=== PATIENT | female | born 1970 | race Caucasian/White ===

== ENCOUNTER 2018-03-25 02:24 | Emergency (ER) | payer OTHER, SELFPAY ==
[2018-03-25] MEDS ORDERED: traMADol 50 MG Tab PO ONE (03:13)
--- NOTE | 2018-03-25 03:15 | EDM.PDOC ---
ED HPI GENERAL MEDICAL PROBLEM - General Chief Complaint: ENT Problem Stated Complaint: TOOTH PAIN Time Seen by Provider: 03/25/18 03:09 Source of Information: Reports: Patient History Limitations: Reports: No Limitations - History of Present Illness INITIAL COMMENTS - FREE TEXT/NARRATIVE: Patient presents with dental pain started yesterday and worse tonight. She's been trying tramadol and Aleve without relief. She has allergic reaction to acetaminophen. He has had recent dental work including root canal and crowns placed. She has an appointment to see the dentist on Monday but her pain is so severe that she needs to be evaluated tonight. No fevers chills or sweats no swallowing difficulty no shortness of breath or breathing problems no facial cellulitis. Patient has a history of diabetes and her blood sugars have been running a little bit higher than usual. Nothing otherwise makes the pain better or worse is no skin infection noted. Left Tooth/Teeth Pain Score (Numeric/FACES): 10 - Related Data Allergies Allergy/AdvReac Type Severity Reaction Status Date / Time acetaminophen Allergy Swelling Verified 03/25/18 02:33 MDT azithromycin Allergy Swelling Verified 03/25/18 02:33 MDT Sulfa (Sulfonamide Allergy Itching Verified 03/25/18 02:33 MDT Antibiotics) Home Meds: Home Meds Levothyroxine 25 mg PO DAILY 03/25/18 [History] Losartan [Cozaar] 100 mg PO DAILY 03/25/18 [History] Penicillin V Potassium [Veetids] 500 mg PO Q8H #30 tab 03/25/18 [Rx] hydroCHLOROthiazide [Hydrochlorothiazide] 25 mg PO DAILY 03/25/18 [History] traMADol [Ultram] 100 mg PO Q6H PRN #12 tab 03/25/18 [Rx] Past Medical History Cardiovascular History: Reports: Hypertension Endocrine/Metabolic History: Reports: Hypothyroidism - Past Surgical History HEENT Surgical History: Reports: Tonsillectomy GI Surgical History: Reports: Cholecystectomy Female Surgical History: Reports: Tubal Ligation Social & Family History - Family History Family Medical History: Noncontributory - Tobacco Use Smoking Status *Q: Never Smoker - Recreational Drug Use Recreational Drug Use: No ED ROS ENT - Review of Systems Review Of Systems: See Below Constitutional: Denies: Fever, Chills, Weakness HEENT: Reports: Dental Pain. Denies: Rhinitis, Sinus Problem Respiratory: Denies: Shortness of Breath, Cough Cardiovascular: Denies: Chest Pain GI/Abdominal: Denies: Abdominal Pain Neurological: Denies: Headache ED EXAM, ENT - Physical Exam Exam: See Below Ears: Normal Canal, Normal TMs Nose: Normal Inspection Mouth/Throat: Normal Inspection, Normal Gums, Dental Tenderness, Other (Dental pain noted to where she had crowns at #5 tooth 14 as well as #18. There is no signs of any obvious abscess cellulitis sublingual swelling or trismus). No: Dental Abcess, Dental Trauma, Drooling, Dry Mucous Membrane, Throat Pain, Throat Swelling, Tonsillar Erythema, Trismus Respiratory/Chest: No Respiratory Distress, Lungs Clear, Normal Breath Sounds Cardiovascular: Normal Peripheral Pulses, Regular Rate, Rhythm Neurological: Alert, Oriented Psychiatric: Normal Affect, Normal Mood Course - Vital Signs Text/Narrative:: Dental pain, dental block applied with Percent Marcaine to both upper and lower tooth areas. Patient tolerated well. Given tramadol for pain 100 mg, as well as penicillin. Patient will follow up with her dentist on Monday, return cautious given Last Recorded V/S: Last Vital Signs Temp 97.5 F 03/25/18 02:30 MDT Pulse 102 H 03/25/18 02:30 MDT Resp 16 03/25/18 02:30 MDT BP 170/92 H 03/25/18 02:30 MDT Pulse Ox 96 03/25/18 02:30 MDT - Orders/Labs/Meds Meds: Medications Discontinued Medications Generic Name Dose Route Start Last Admin Trade Name Freq PRN Reason Stop Dose Admin Tramadol HCl 100 mg 03/25/18 03:13 MDT 03/25/18 03:31 MDT Ultram PO 03/25/18 03:14 MDT 100 mg ONETIME ONE Administration Departure - Departure Time of Disposition: 07:26 Disposition: Refer to Observation Condition: Good Clinical Impression: Toothache, Dental abscess - Discharge Information Prescriptions: Penicillin V Potassium [Veetids] 500 mg PO Q8H #30 tab traMADol [Ultram] 100 mg PO Q6H PRN #12 tab PRN Reason: Pain (Severe 7-10) Instructions: Dental Abscess, [id number] Referrals: Dariana Chavira NP [Primary Care Provider] - Forms: ED Department Discharge
== END 2018-03-25 03:33 | disposition other institution (70) ==
LOC: JD.ED 02:24
DX: K04.7 Periapical abscess without sinus (principal); I10 Essential (primary) hypertension; E03.9 Hypothyroidism, unspecified; Z88.8 Allergy status to other drugs, medicaments and biological substances; Z88.2 Allergy status to sulfonamides; Z88.1 Allergy status to other antibiotic agents; Z79.899 Other long term (current) drug therapy
CPT/HCPCS: 64400; 99283; A9270